=== PATIENT | female | born 1980 | race Caucasian/White ===

== ENCOUNTER → 2018-09-12 | Outpatient (CLI) | payer OTHER ==
[~2018-09-12] MED LIST: ALBU90OI INH; AMOX500 PO; AZIT250 PO; BENZ100A PO; CLAR500 PO; CODGUAEL PO; CYCL10 PO; HYDACE5 PO; IBUHYD PO; MARIJUANA MEDICAL; METO10 PO; MULVITMINE PO; NAPR550 PO; ONDA4 PO; OXYACE5T PO; PHENA200 PO; PRED20 PO; PROM25 PO; RXCODGUASY PO; RXHYDACE PO; RXSULTRIDS PO; SULTRIDS PO
[2018-09-12 17:01] LABS: BASOPHILS ABSOLUTE AUTO 0.03 K/mm3 (0.00-0.23); BASOPHILS PERCENT AUTO 0 % (0-2); EOSINOPHILS ABSOLUTE AUTO 0.26 K/mm3 (0.00-0.68); EOSINOPHILS PERCENT AUTO 4 % (0-6); Hematocrit 41.5 % (33.0-51.0); Hemoglobin 13.2 g/dL (11.5-16.0); IMMATURE GRAN ABSOLUTE AUTO 0.01 K/mm3 (0.00-0.10); IMMATURE GRAN PERCENT AUTO 0 % (0-1); LYMPHOCYTES ABSOLUTE AUTO 2.17 K/mm3 (0.84-5.20); LYMPHOCYTES PERCENT AUTO 31 % (21-46); MONOCYTES ABSOLUTE AUTO 0.42 K/mm3 (0.16-1.47); MONOCYTES PERCENT AUTO 6 % (4-13); Mean Corpuscular HGB 26.9 pg (26.0-34.0); Mean Corpuscular HGB Conc 31.8 g/dL (31.5-36.5); Mean Corpuscular Volume 85 fL (80-100); Mean Platelet Volume 9.3 fL (9.1-12.4); NEUTROPHILS ABSOLUTE AUTO 4.19 K/mm3 (1.96-9.15); NEUTROPHILS PERCENT AUTO 59 % (41-73); Platelet Count 243 K/mm3 (150-400); RDW Coefficient Variation 13.5 % (11.7-14.2); RDW Standard Deviation 41.8 fL (35.1-46.3); White Blood Cell Count 7.08 K/mm3 (4.00-11.30)
[2018-09-12 17:10] LABS: Alanine Aminotransfer (ALT/SGP 45 U/L (12-78); Albumin, Blood 3.4 g/dL (3.4-5.0); Albumin/Globulin Ratio 0.7 (0.8-1.8); Alk Phos 73 U/L (40-126); Anion Gap 6 mmol/L (6-16); Aspartate Aminotrans (AST/SGOT 31 U/L (12-37); Bilirubin, Total 0.2 mg/dL (0.1-1.0); Blood Urea Nitrogen 11 mg/dL (8-24); Bun/Creatinine Ratio 11.7 (12.0-20.0); CO2, Blood 31 mmol/L (21-32); Chloride, Blood 102 mmol/L (98-108); Creatinine, Blood 0.94 mg/dL (0.40-1.00); Globulin, Blood 4.7 g/dL (2.2-4.0); Glomerular Filtration Rate >60 (60-); Glucose, Blood 109 mg/dL (70-99); Potassium, Blood 4.2 mmol/L (3.5-5.5); Sodium, Blood 139 mmol/L (136-145); Total Protein, Blood 8.1 g/dL (6.4-8.2)
[2018-09-12 17:49] LABS: Source, Urine Clean Catch
[2018-09-12 18:47] LABS: Bacteria Many /hpf; Hyaline Casts 0-2 /lpf (0-2); Mucus Mod (0-Heavy); Squamous Epithelial Cells Many /hpf (Few); White Blood Cells, Urine 25-50 /hpf (0-5)
[2018-09-12 18:48] LABS: Calcium Oxalate Crystals Many /hpf
== END | disposition home or self-care (01) ==
LOC: LAB EV 16:56 → LAB SHORT 16:56
PROVIDERS: General Practice
DX: R10.9 Unspecified abdominal pain (principal); R30.0 Dysuria
CPT/HCPCS: 80053; 81015; 85025; 87077; 87086; 87186

== ENCOUNTER → 2018-10-15 | Outpatient (CLI) | payer OTHER ==
[2018-10-15 15:24] LABS: Test Name NIC+MET W/ANABA
[2018-11-09 11:20] LABS: Result SEE LABOUT RESULTS
== END | disposition home or self-care (01) ==
LOC: LAB 14:53 → LAB SHORT 14:53
PROVIDERS: Obstetrics & Gynecology
DX: Z72.0 Tobacco use (principal)

== ENCOUNTER → 2018-12-02 | Outpatient (CLI) | payer OTHER ==
[~2018-12-02] MED LIST changes: +ALPR.5 PO; +Budeprion Xl300 MG PO; +ESCITALOPRAM OX10 MG PO; +Metformin HCl1000 MG PO; +Norco 7.5-3251 EACH PO; +Percocet 7.5-31 EACH PO
[2018-12-02 19:04] LABS: BASOPHILS ABSOLUTE AUTO 0.02 K/mm3 (0.00-0.23); BASOPHILS PERCENT AUTO 0 % (0-2); EOSINOPHILS ABSOLUTE AUTO 0.22 K/mm3 (0.00-0.68); EOSINOPHILS PERCENT AUTO 2 % (0-6); Hematocrit 39.7 % (33.0-51.0); Hemoglobin 12.9 g/dL (11.5-16.0); IMMATURE GRAN ABSOLUTE AUTO 0.02 K/mm3 (0.00-0.10); IMMATURE GRAN PERCENT AUTO 0 % (0-1); LYMPHOCYTES ABSOLUTE AUTO 1.79 K/mm3 (0.84-5.20); LYMPHOCYTES PERCENT AUTO 17 % (21-46); MONOCYTES ABSOLUTE AUTO 0.45 K/mm3 (0.16-1.47); MONOCYTES PERCENT AUTO 4 % (4-13); Mean Corpuscular HGB 27.4 pg (26.0-34.0); Mean Corpuscular HGB Conc 32.5 g/dL (31.5-36.5); Mean Corpuscular Volume 85 fL (80-100); Mean Platelet Volume 9.4 fL (9.1-12.4); NEUTROPHILS ABSOLUTE AUTO 7.83 K/mm3 (1.96-9.15); NEUTROPHILS PERCENT AUTO 76 % (41-73); Platelet Count 224 K/mm3 (150-400); RDW Coefficient Variation 13.7 % (11.7-14.2); RDW Standard Deviation 42.5 fL (35.1-46.3); White Blood Cell Count 10.33 K/mm3 (4.00-11.30)
[2018-12-02 19:12] LABS: Albumin, Blood 3.5 g/dL (3.4-5.0); Albumin/Globulin Ratio 0.7 (0.8-1.8); Bilirubin, Total 0.2 mg/dL (0.1-1.0); Bun/Creatinine Ratio 11.8 (12.0-20.0); Calcium, Blood 8.8 mg/dL (8.5-10.1); Creatinine, Blood 1.27 mg/dL (0.40-1.00); Globulin, Blood 4.7 g/dL (2.2-4.0); Potassium, Blood 3.7 mmol/L (3.5-5.5); Total Protein, Blood 8.2 g/dL (6.4-8.2)
== END | disposition home or self-care (01) ==
LOC: LAB EV 18:58 → LAB SHORT 18:58
PROVIDERS: Physician Assistant
DX: R10.13 Epigastric pain (principal)
CPT/HCPCS: 80053; 83690; 85025

== ENCOUNTER 2019-01-04 08:32 | Inpatient (IN) | payer OTHER ==
[~2019-01-04] VITALS: Ht 179 cm; Wt 136.0 kg
[~2019-01-04 08:32] MED LIST changes: +ZOLP5 PO
[2019-01-04] MEDS ORDERED: ESCI20 PO (09:00)
[2019-01-04] MEDS ORDERED: METF500 PO (09:01)
[2019-01-04] MEDS ORDERED: Adipex-P37.5 MG PO (09:01)
--- NOTE | 2019-01-04 09:23 | NUR ---
Ambulatory in Day Surgery History, Chart, Medications and Allergies reviewed before start of procedure.Patient confirms NPO status and agrees with scheduled surgery. Patient reports completing Chlorhexadine shower X2 prior to admission to hospital.Surgical site prepped with 2% Chlorhexidine cloth wipe.
--- NOTE | 2019-01-04 12:50 | NUR ---
01/04/19 1250 [address] 1135- TRANSISTIONED TO OPEN ABDOMINAL HYSTERECTOMY.
--- NOTE | 2019-01-04 16:37 | NUR ---
PT ARRIVED TO UNIT FROM PACU TEARFUL REPORTED 7/10 PAIN WHICH QUICKLY ESCALATED TO 8/10. MEDICATED PER ORDERS FOR PAIN W/0.5MG IV DILAUDID. REPORTED NO RELIEF. MEDICATED PER ORDERS W/TORADOL AND ROXICODONE. K PAD TO ABDOMEN FOR COMFORT. WILL CONTINUE TO MONITOR.
--- NOTE | 2019-01-04 17:34 | NUR ---
SPOKE TO DR DONG REGARDING PT'S PAIN. AWAITING ORDERS.
--- NOTE | 2019-01-04 18:52 | NUR ---
SUMMARY PT ARRIVED TO FLOOR THIS AFTERNOON S/P LAVH CONVERTED TO HEIDY. PT TEARFUL DUE TO UPON UPON ARRIVAL TO FLOOR. MEDICATED PER ORDERS FOR PAIN WHICH RESULTED IN NO RELIEF FOR PT. 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 PT NOW REPORTS PAIN IMPROVED FROM 10 TO 7 AFTER STARTING EXTRACTION MACHINE OPERATOR. HAS NOT BEEN OUT OF BED DUE TO PAIN MANAGEMENT ISSUES.
[2019-01-05 04:39] LABS: BASOPHILS ABSOLUTE AUTO 0.01 K/mm3 (0.00-0.23); BASOPHILS PERCENT AUTO 0 % (0-2); EOSINOPHILS ABSOLUTE AUTO 0.01 K/mm3 (0.00-0.68); EOSINOPHILS PERCENT AUTO 0 % (0-6); Hematocrit 32.4 % (33.0-51.0); IMMATURE GRAN ABSOLUTE AUTO 0.05 K/mm3 (0.00-0.10); IMMATURE GRAN PERCENT AUTO 1 % (0-1); LYMPHOCYTES ABSOLUTE AUTO 1.83 K/mm3 (0.84-5.20); LYMPHOCYTES PERCENT AUTO 18 % (21-46); MONOCYTES ABSOLUTE AUTO 0.88 K/mm3 (0.16-1.47); MONOCYTES PERCENT AUTO 9 % (4-13); Mean Corpuscular HGB 27.7 pg (26.0-34.0); Mean Corpuscular HGB Conc 30.9 g/dL (31.5-36.5); Mean Corpuscular Volume 90 fL (80-100); Mean Platelet Volume 9.9 fL (9.1-12.4); NEUTROPHILS ABSOLUTE AUTO 7.38 K/mm3 (1.96-9.15); NEUTROPHILS PERCENT AUTO 73 % (41-73); Platelet Count 207 K/mm3 (150-400); RDW Coefficient Variation 14.2 % (11.7-14.2); RDW Standard Deviation 46.5 fL (35.1-46.3); Red Blood Cell Count 3.61 M/mm3 (3.80-5.20); White Blood Cell Count 10.16 K/mm3 (4.00-11.30)
--- NOTE | 2019-01-05 05:51 | NUR ---
SHIFT SUMMARY PAIN MANAGED WITH DILAUDID VELVET CUTTER. ASKED FOR PO PAIN MEDS AT HS DUE TO HER WANTING TO SLEEP AND REST WELL. TORADOL ALSO GIVEN PER REQUEST. EDUCATED ON VARIOUS PAIN MEDS, VOICES UNDERSTANDING. DENIES FURTHER NEEDS AT THIS TIME. SAFETY MEASURES IN PLACE. WILL GIVE HAND OFF TO ONCOMING SHIFT USING SBAR.
--- NOTE | 2019-01-05 12:17 | NUR ---
ALLISON CHERY AT 0730 THIS AM BY TIMUR
--- NOTE | 2019-01-05 17:18 | NUR ---
SUMMARY PT POD1 FOR LAVH CONVERTED TO HEIDY. PT VOIDING. INDEPENDENT IN ROOM W/HELP OF SPOUSE. ABDOMINAL BINDER IN PLACE. MEDICATED PER ORDERS FOR NAUSEA AND PAIN. CALL LIGHT IN REACH.
--- NOTE | 2019-01-06 06:23 | NUR ---
SHIFT SUMMARY PAIN MANAGED WITH PO PAIN MEDS. PT ATTEMPTS TO SCHEDULE PAINS TO KEEP PAIN AT [facility]AY, AFTER PASSING GAS, STATES THAT SHE FEELS MUCH BETTER. DENIES FURTHER NEEDS AT THIS TIME. SAFETY MEASURES IN PLACE. WILL GIVE HAND OFF TO ONCOMING SHIFT USING SBAR.
--- NOTE | 2019-01-06 17:38 | NUR ---
SUMMARY PATIENT HAS REPORTED PAIN LEVEL 6-9 THROUGHOUT SHIFT. UP IN ROOM INDEPENDENTLY TO USE RESTROOM. PATIENT REPORTS SMALL AMOUNT VAGINAL SPOTTING. ABD LAP SITES WITHOUT DRAINAGE. PATIENT AMBULATRD IN [place] X1, PATIENT ENCOURAGED TO INCREASE AMBULATION. PATIENT TOLERATING FOOD AND FLUIDS WITHOUT NAUSEA
--- NOTE | 2019-01-07 06:18 | NUR ---
SUMMARY POD #3 PT HAS AMBULATED IN THE HALLS X3. PASSING FLATUS. PAIN MANAGED PER EMAR. DRSG'S INTACT. PT SHOWERED. BANDAIDS REPLACED.
[2019-01-07] MEDS ORDERED: IBUP800 PO (11:15)
[2019-01-07] MEDS ORDERED: DOCU100 PO (11:16)
[2019-01-07] MEDS ORDERED: ONDA4ODT MM (11:17)
[2019-01-07] MEDS ORDERED: Percocet 10-321 EACH PO (11:22)
--- NOTE | 2019-01-07 12:56 | NUR ---
DISCHARGE DISCHARGE MEDICATIONS AND INSTRUCTIONS EXPLAINED TO PATIENT. PATIENT STATED UNDERSTANDING. HARD COPY PRESCRIPTIONS GIVEN TO PATIENT. AFTERCARE FOR INCISION EXPLAINED IN DETAIL. IV REMOVED WITHOUT DIFFICULTY. BELONGINGS WITH PATIENT. PATIENT TRANSFERRED TO PRIVATE VEHICLE VIA WHEELCHAIR.
== END 2019-01-07 12:39 | disposition home or self-care (01) | DRG 742 ==
LOC: ORSCMMR 08:32 → ORD 10:00 → SURS 14:18 → ORSCMMR 14:18 → SURS 16:33
PROVIDERS: ADMIT Obstetrics & Gynecology
PROC: 0UT90ZZ Resection of Uterus, Open Approach (ICD-10-PCS; principal; 2019-01-04 10:00)
PROC: 0UB10ZZ Excision of Left Ovary, Open Approach (ICD-10-PCS; 2019-01-04 10:00)
PROC: 0UB70ZZ Excision of Bilateral Fallopian Tubes, Open Approach (ICD-10-PCS; 2019-01-04 10:00)
DX: N80.0 Endometriosis of uterus (principal); Z68.41 Body mass index [BMI] 40.0-44.9, adult; E66.01 Morbid (severe) obesity due to excess calories; R10.2 Pelvic and perineal pain; N94.6 Dysmenorrhea, unspecified; N83.8 Other noninflammatory disorders of ovary, fallopian tube and broad ligament; F41.9 Anxiety disorder, unspecified; F32.9 Major depressive disorder, single episode, unspecified; Z87.891 Personal history of nicotine dependence
CPT/HCPCS: 36415; 82947; 85025; 88307; 94762; A9270-GY; J0690; J1100; J1170; J1650; J1885; J2250; J2370; J2405; J2704; J3010; J7120

== ENCOUNTER 2019-07-01 14:02 | Emergency (ER) | payer OTHER ==
[~2019-07-01] VITALS: Ht 180.3 cm; Wt 135.2 kg
[~2019-07-01 14:02] MED LIST changes: +Adipex-P37.5 MG PO; +DOCU100 PO; +ESCI20 PO; +IBUP800 PO; +METF500 PO; +ONDA4ODT MM; +Percocet 10-321 EACH PO
== END 2019-07-01 16:10 | disposition home or self-care (01) ==
LOC: ER 14:02
DX: S46.911A Strain of unspecified muscle, fascia and tendon at shoulder and upper arm level, right arm, initial encounter (principal); E11.9 Type 2 diabetes mellitus without complications; F17.200 Nicotine dependence, unspecified, uncomplicated; Z79.84 Long term (current) use of oral hypoglycemic drugs; Z79.899 Other long term (current) drug therapy; V49.9XXA Car occupant (driver) (passenger) injured in unspecified traffic accident, initial encounter
CPT/HCPCS: 73060; 99283-25

== ENCOUNTER 2019-12-06 14:17 | Emergency (ER) | payer OTHER ==
[~2019-12-06] VITALS: Ht 177.8 cm; Wt 136.1 kg
[2019-12-06] MEDS ORDERED: Klonopin0.5 MG PO (15:51)
[2019-12-06] MEDS ORDERED: Adipex-P37.5 MG PO (15:51)
[2019-12-06] MEDS ORDERED: TYLECOD3 PO (16:53)
== END 2019-12-06 17:01 | disposition home or self-care (01) ==
LOC: ER 14:17
DX: M25.511 Pain in right shoulder (principal); F17.210 Nicotine dependence, cigarettes, uncomplicated; Z79.899 Other long term (current) drug therapy
CPT/HCPCS: 99283

== ENCOUNTER 2019-12-23 11:43 | Emergency (ER) | payer OTHER ==
[~2019-12-23] VITALS: Ht 177.8 cm; Wt 133.4 kg
[~2019-12-23 11:43] MED LIST changes: +Klonopin0.5 MG PO; +TYLECOD3 PO
[2019-12-23] MEDS ORDERED: Cyclobenzaprine5 MG PO (14:47)
[2019-12-23] MEDS ORDERED: Percocet 5-3251 EACH PO (14:47)
== END 2019-12-23 15:17 | disposition home or self-care (01) ==
LOC: ER 11:43
DX: R51 Headache (principal); M54.2 Cervicalgia; F17.200 Nicotine dependence, unspecified, uncomplicated; Z79.899 Other long term (current) drug therapy; Z98.1 Arthrodesis status
CPT/HCPCS: 36415; 70450; 72125; 96361; 96374; 96375; 99283-25; J1200; J1885; J2765; J7120

== ENCOUNTER 2019-12-27 16:48 | Emergency (ER) | payer OTHER ==
[~2019-12-27] VITALS: Ht 177.8 cm; Wt 133.4 kg
[~2019-12-27 16:48] MED LIST changes: +Cyclobenzaprine5 MG PO; +Percocet 5-3251 EACH PO
[2019-12-27] MEDS ORDERED: ONDA4ODT MM (20:04)
[2019-12-27] MEDS ORDERED: KETO10 PO (20:04)
== END 2019-12-27 20:40 | disposition home or self-care (01) ==
LOC: ER 16:48
DX: R51 Headache (principal); F17.210 Nicotine dependence, cigarettes, uncomplicated; Z79.899 Other long term (current) drug therapy; Z79.84 Long term (current) use of oral hypoglycemic drugs
CPT/HCPCS: 96374; 96375; 99283-25; J1100; J1200; J1885; J2765; J7120

== ENCOUNTER 2020-09-11 10:43 | Emergency (ER) | payer OTHER ==
[~2020-09-11] VITALS: Ht 177.8 cm; Wt 88.0 kg
[~2020-09-11 10:43] MED LIST changes: +KETO10 PO
[2020-09-11 11:25] LABS: BASOPHILS ABSOLUTE AUTO 0.02 K/mm3 (0.00-0.23); BASOPHILS PERCENT AUTO 0 % (0-2); EOSINOPHILS ABSOLUTE AUTO 0.37 K/mm3 (0.00-0.68); EOSINOPHILS PERCENT AUTO 5 % (0-6); Hematocrit 42.7 % (33.0-51.0); Hemoglobin 13.7 g/dL (11.5-16.0); IMMATURE GRAN ABSOLUTE AUTO 0.01 K/mm3 (0.00-0.10); IMMATURE GRAN PERCENT AUTO 0 % (0-1); LYMPHOCYTES ABSOLUTE AUTO 1.83 K/mm3 (0.84-5.20); LYMPHOCYTES PERCENT AUTO 22 % (21-46); MONOCYTES ABSOLUTE AUTO 0.44 K/mm3 (0.16-1.47); MONOCYTES PERCENT AUTO 5 % (4-13); Mean Corpuscular HGB 29.6 pg (26.0-34.0); Mean Corpuscular HGB Conc 32.1 g/dL (31.5-36.5); Mean Corpuscular Volume 92 fL (80-100); NEUTROPHILS ABSOLUTE AUTO 5.57 K/mm3 (1.96-9.15); NEUTROPHILS PERCENT AUTO 68 % (41-73); Platelet Count 191 K/mm3 (150-400); RDW Coefficient Variation 13.2 % (11.7-14.2); RDW Standard Deviation 44.9 fL (35.1-46.3); Red Blood Cell Count 4.63 M/mm3 (3.80-5.20); White Blood Cell Count 8.24 K/mm3 (4.00-11.30)
[2020-09-11 11:50] LABS: Alanine Aminotransfer (ALT/SGP 14 U/L (12-78); Albumin, Blood 3.6 g/dL (3.4-5.0); Albumin/Globulin Ratio 0.8 (0.8-1.8); Alk Phos 82 U/L (50-136); Anion Gap 4 mmol/L (6-16); Aspartate Aminotrans (AST/SGOT 12 U/L (12-37); Bilirubin, Total 0.7 mg/dL (0.1-1.0); Blood Urea Nitrogen 14 mg/dL (8-24); Bun/Creatinine Ratio 20.6 (12.0-20.0); CO2, Blood 27 mmol/L (21-32); Calcium, Blood 9.1 mg/dL (8.5-10.1); Chloride, Blood 106 mmol/L (98-108); Creatinine, Blood 0.68 mg/dL (0.40-1.00); Globulin, Blood 4.3 g/dL (2.2-4.0); Glomerular Filtration Rate >60 (60-); Glucose, Blood 85 mg/dL (70-99); Potassium, Blood 4.1 mmol/L (3.5-5.5); Sodium, Blood 137 mmol/L (136-145); Total Protein, Blood 7.9 g/dL (6.4-8.2)
[2020-09-11] MEDS ORDERED: HYDR1TAB94 PO (13:00)
[2020-09-11] MEDS ORDERED: CLIN300 PO (13:00)
[2020-11-09] MEDS ORDERED: CEPH500 PO (10:59)
[2020-11-09] MEDS ORDERED: SULTRIDS PO (10:59)
[2020-11-09] MEDS ORDERED: HYDR1TAB94 PO (11:05)
== END 2020-09-11 13:20 | disposition home or self-care (01) ==
LOC: ER 10:43
PROVIDERS: Physician Assistant
DX: L03.317 Cellulitis of buttock (principal); F17.210 Nicotine dependence, cigarettes, uncomplicated; Z79.899 Other long term (current) drug therapy
CPT/HCPCS: 36415; 72193; 80053; 85025; 96365-59; 96375; 99283-25; J2405; J3010; Q9967

== ENCOUNTER 2020-10-11 18:49 | Emergency (ER) | payer OTHER ==
[~2020-10-11] VITALS: Ht 177.8 cm; Wt 80.7 kg
[~2020-10-11 18:49] MED LIST changes: +CLIN300 PO; +HYDR1TAB94 PO
[2020-10-11 20:16] LABS: BASOPHILS ABSOLUTE AUTO 0.03 K/mm3 (0.00-0.23); BASOPHILS PERCENT AUTO 0 % (0-2); EOSINOPHILS ABSOLUTE AUTO 0.26 K/mm3 (0.00-0.68); EOSINOPHILS PERCENT AUTO 3 % (0-6); Hematocrit 44.1 % (33.0-51.0); Hemoglobin 14.5 g/dL (11.5-16.0); IMMATURE GRAN ABSOLUTE AUTO 0.02 K/mm3 (0.00-0.10); IMMATURE GRAN PERCENT AUTO 0 % (0-1); LYMPHOCYTES ABSOLUTE AUTO 2.27 K/mm3 (0.84-5.20); LYMPHOCYTES PERCENT AUTO 25 % (21-46); MONOCYTES ABSOLUTE AUTO 0.54 K/mm3 (0.16-1.47); MONOCYTES PERCENT AUTO 6 % (4-13); Mean Corpuscular HGB 29.2 pg (26.0-34.0); Mean Corpuscular HGB Conc 32.9 g/dL (31.5-36.5); Mean Corpuscular Volume 89 fL (80-100); NEUTROPHILS ABSOLUTE AUTO 5.95 K/mm3 (1.96-9.15); NEUTROPHILS PERCENT AUTO 66 % (41-73); Platelet Count 206 K/mm3 (150-400); RDW Coefficient Variation 13.2 % (11.7-14.2); RDW Standard Deviation 42.5 fL (35.1-46.3); Red Blood Cell Count 4.96 M/mm3 (3.80-5.20); White Blood Cell Count 9.07 K/mm3 (4.00-11.30)
[2020-10-11 20:28] LABS: Alanine Aminotransfer (ALT/SGP 19 U/L (12-78); Albumin, Blood 3.2 g/dL (3.4-5.0); Albumin/Globulin Ratio 0.7 (0.8-1.8); Alk Phos 72 U/L (50-136); Anion Gap 6 mmol/L (6-16); Aspartate Aminotrans (AST/SGOT 13 U/L (12-37); Bilirubin, Total 0.6 mg/dL (0.1-1.0); Blood Urea Nitrogen 17 mg/dL (8-24); Bun/Creatinine Ratio 33.2 (12.0-20.0); CO2, Blood 26 mmol/L (21-32); Calcium, Blood 9.2 mg/dL (8.5-10.1); Chloride, Blood 107 mmol/L (98-108); Creatinine, Blood 0.51 mg/dL (0.40-1.00); Globulin, Blood 4.7 g/dL (2.2-4.0); Glomerular Filtration Rate >60 (60-); Glucose, Blood 83 mg/dL (70-99); Potassium, Blood 3.5 mmol/L (3.5-5.5); Sodium, Blood 139 mmol/L (136-145); Total Protein, Blood 7.9 g/dL (6.4-8.2)
[2020-10-11] MEDS ORDERED: ONDA4ODT MM (22:55)
[2020-10-11] MEDS ORDERED: Percocet 5-3251 EACH PO (22:55)
[2020-10-11] MEDS ORDERED: Cleocin HCl150 MG PO (22:55)
[2020-11-09] MEDS ORDERED: CEPH500 PO (10:59)
[2020-11-09] MEDS ORDERED: SULTRIDS PO (10:59)
[2020-11-09] MEDS ORDERED: HYDR1TAB94 PO (11:05)
== END 2020-10-11 23:16 | disposition home or self-care (01) ==
LOC: ER 18:49
PROVIDERS: Physician Assistant
DX: L02.31 Cutaneous abscess of buttock (principal); L02.212 Cutaneous abscess of back [any part, except buttock and flank]; F17.210 Nicotine dependence, cigarettes, uncomplicated; Z79.899 Other long term (current) drug therapy
CPT/HCPCS: 10060; 36415; 80053; 85025; 87070; 87075; 87077; 87186; 87205; 96365-59; 96375-59; 99283-25; A9270; J2405; J3010; J7030

== ENCOUNTER 2021-11-17 18:34 | Emergency (ER) | payer OTHER ==
[~2021-11-17] VITALS: Ht 177.8 cm; Wt 74.8 kg
[~2021-11-17 18:34] MED LIST changes: +CEPH500 PO; +Cleocin HCl150 MG PO
[2021-11-17] MEDS ORDERED: Percocet 5-3251 EACH PO (20:37)
== END 2021-11-17 20:54 | disposition home or self-care (01) ==
LOC: ER 18:34
DX: M53.3 Sacrococcygeal disorders, not elsewhere classified (principal); F17.210 Nicotine dependence, cigarettes, uncomplicated; S16.1XXA Strain of muscle, fascia and tendon at neck level, initial encounter; V80.010A Animal-rider injured by fall from or being thrown from horse in noncollision accident, initial encounter
CPT/HCPCS: 72125; 72220; A9270; J1885

== ENCOUNTER 2021-11-22 14:37 | Emergency (ER) | payer OTHER ==
[~2021-11-22] VITALS: Ht 177.8 cm; Wt 74.8 kg
[2021-11-22] MEDS ORDERED: Percocet 5-3251 EACH PO (17:55)
[2021-11-22] MEDS ORDERED: OXYC5 PO (18:09)
== END 2021-11-22 18:15 | disposition home or self-care (01) ==
LOC: ER 14:37
DX: S32.2XXA Fracture of coccyx, initial encounter for closed fracture (principal); S76.011A Strain of muscle, fascia and tendon of right hip, initial encounter; W10.9XXA Fall (on) (from) unspecified stairs and steps, initial encounter; Z88.6 Allergy status to analgesic agent; Z87.891 Personal history of nicotine dependence; F17.210 Nicotine dependence, cigarettes, uncomplicated
CPT/HCPCS: 73502; J1885

== ENCOUNTER 2024-09-12 23:32 | Emergency (ER) | payer OTHER ==
[~2024-09-12] VITALS: Ht 177.8 cm; Wt 100.7 kg
[~2024-09-12 23:32] MED LIST changes: +OXYC5 PO
[2024-09-13] MEDS ORDERED: Methyl Salicylate/Menth/Camph 57 GM TUBE TOP ONE ×2 (00:25→23:55)
[2024-09-13] MEDS ORDERED: Methocarbamol 500 MG Tab PO ONE ×2 (00:25→23:55)
[2024-09-13] MEDS ORDERED: Ketorolac Tromethamine 30mg Vial IV ONE ×2 (00:25→23:55)
[2024-09-13] MEDS ORDERED: Robaxin750 MG PO (01:06)
[2024-09-13 01:30] VITALS: BP 126/77
== END 2024-09-13 01:40 | disposition home or self-care (01) ==
LOC: ER 23:32
DX: S09.90XA Unspecified injury of head, initial encounter (principal); S16.1XXA Strain of muscle, fascia and tendon at neck level, initial encounter; M62.830 Muscle spasm of back; F17.210 Nicotine dependence, cigarettes, uncomplicated; V49.9XXA Car occupant (driver) (passenger) injured in unspecified traffic accident, initial encounter; Z88.5 Allergy status to narcotic agent
CPT/HCPCS: 70450; 72125; 96372; 99284-25; A9270; J1885